=== PATIENT | male | born 1965 | race Caucasian/White ===

== ENCOUNTER 2017-05-28 09:38 | Inpatient (IN) | payer BC ==
[2017-05-27 10:30] VITALS: Ht 182.9 cm; Wt 81.3 kg
[~2017-05-28] VITALS: Ht 182.9 cm; Wt 81.3 kg
[2017-05-28] VITALS (22 sets, daily range): BP systolic 121–144; BP diastolic 69–95; PULSE 55–71; RESP 11–29
[~2017-05-28 09:38] MED LIST: CEFAZOLIN 1 GM INJ ONE
[2017-05-28] MEDS ORDERED: ROPIVACAINE 0.5 % 30 ML VIAL ONE (10:15)
[2017-05-28] MEDS ORDERED: MIDAZOLAM 1 MG/ML 2 ML INJ ONE (10:15)
[2017-05-28] MEDS ORDERED: BUPIVACAINE 0.5%/EPI (SDV) 30 ML INJ ONE (10:59)
[2017-05-28] MEDS ORDERED: POLYMYXIN/BACITRACIN 1L IRRIG ONE (11:00)
[2017-05-28] MEDS ORDERED: THROMBIN 5000 UNIT VIAL ONE (11:00)
[2017-05-28] MEDS ORDERED: CA CHLORIDE 10% 10 ML SYRINGE ONE (11:00)
--- NOTE | 2017-05-28 11:10 | HPN ---
Date/Time of Note Date/Time of Note DATE: 05/28/17 TIME: 11:10 Interval H&P Admission Note Pt. seen H&P reviewed: No system changes RAMY CHAVARRIA MD May 28, 2017 11:10
[2017-05-28] MEDS ORDERED: DEXAMETHASONE 1 MG TAB PO SCH (11:30)
[2017-05-28] MEDS ORDERED: CEFAZOLIN 2 GM/50 ML (PMX) 50 ML IVPB SCH (11:30)
[2017-05-28] MEDS ORDERED: traMADol 50 MG TAB PO SCH (11:30)
[2017-05-28] MEDS ORDERED: GABAPENTIN 300 MG CAP PO SCH ×2 (11:30→21:00)
[2017-05-28] MEDS ORDERED: TRANEXAMIC ACID 1,000 MG in SOD CHLORIDE 0.9% 100 ML IVPB SCH (11:30)
[2017-05-28] MEDS ORDERED: BUPIVACAINE 0.5% (SDV) 30 ML, morphine SULFATE (PF) 8 MG, EPINEPHrine 0.3 MG, KETOROLAC... IRR SCH ×7 (11:30)
[2017-05-28] MEDS ORDERED: NEOSTIGMINE 3 MG/3 ML SYRINGE ONE (12:25)
[2017-05-28] MEDS ORDERED: GLYCOPYRROLATE 0.4 MG INJ ONE (12:25)
[2017-05-28] MEDS ORDERED: LIDOCAINE 2% (SDV) 5 ML INJ ONE (12:25)
[2017-05-28] MEDS ORDERED: CEFAZOLIN 1 GM INJ ONE (12:25)
[2017-05-28] MEDS ORDERED: PROPOFOL 20 ML ONE (12:25)
[2017-05-28] MEDS ORDERED: ROCURONIUM 50 MG INJ ONE (12:25)
[2017-05-28] MEDS ORDERED: MEPERIDINE 25 MG INJ IV PRN (13:00)
[2017-05-28] MEDS ORDERED: DIPHENHYDRAMINE 50 MG INJ IV PRN ×2 (13:00→14:30)
[2017-05-28] MEDS ORDERED: FENTAnyl 50 MCG/ML VIAL IV PRN ×2 (13:00)
[2017-05-28] MEDS ORDERED: HYDROmorphONE (0.2 MG/ML) 10ML SYG IV PRN ×2 (13:00)
--- NOTE | 2017-05-28 14:27 | OPR ---
Date/Time of Note Date/Time of Note DATE: 05/28/17 TIME: 14:21 Operative Report Procedure Date: May 28, 2017 Preoperative Diagnosis Right shoulder displaced glenoid fracture status post open reduction internal fixation Postoperative Diagnosis 1. right shoulder displaced glenoid fracture 2. Right shoulder fracture hardware Operation Performed 1. Right shoulder open reduction internal fixation of glenoid fracture 2. 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 Approximately 2 weeks ago, he noted increasing pain and possible motion. Subsequently radiographs revealed a fractured screw and displacement of the fracture. He is now taken back to surgery for revision surgery. Operative\Procedure Findings Following the administration of general endotracheal anesthesia supplemented with a scalene block, the patient was placed in the beachchair position. The left upper extremity was prepped and draped in the usual sterile fashion. The previous deltopectoral incision was then used once again, exposing the conjoined tendon and retracting it medially. The subscapularis was then incised as well as the bicipital groove. Only a small portion of the subscapularis was detached. T The fracture site was then identified and a significant amount of tilting and displacement was noted. More proximally, the 2 screws were then identified and removed. The portion of the broken screw that was extremely posterior was then left in place. The fracture was then mobilized. Through percutaneous incisions superiorly, and using fluoroscopic guidance, 2 cannulated screws were then placed across the fracture site with both direct visual as well as radiographic visualization. The screws were a 50 mm and a 45 mm AccuTrack 4.5 millimeter screw. The fracture was then noted to be reasonably aligned with a very small amount of tilt. There was a very small area of central comminution of the cartilage, which was excised. This measured approximately 5 mm x 2 mm. Radiographic confirmation of good alignment was then documented. The joint was thoroughly irrigated closed using running sutures for the subscapularis which was a solid closure. The subcutaneous clean tissues were then closed using running stitches, followed by a Prenio dressing. A watertight closure was obtained. An UltraSling was then placed. The patient was awakened and transported to recovery in stable condition tolerated procedure well estimated blood loss for the procedure was 100 cc. Postoperative radiographs will be obtained in the recovery room. RAMY CHAVARRIA MD May 28, 2017 14:27
[2017-05-28] MEDS ORDERED: morphine 4 MG/ML VIAL IV PRN (14:30)
[2017-05-28] MEDS ORDERED: KETOROLAC 15 MG INJ IV PRN (14:30)
[2017-05-28] MEDS ORDERED: morphine 2 MG INJ IV PRN (14:30)
[2017-05-28] MEDS ORDERED: MAGNESIUM HYDROXIDE 30ML CUP PO PRN (14:30)
[2017-05-28] MEDS ORDERED: ZOLPIDEM 5 MG TAB PO PRN (14:30)
[2017-05-28] MEDS ORDERED: ACETAMINOPHEN 500 MG TAB PO PRN (14:30)
[2017-05-28] MEDS ORDERED: ONDANSETRON 4 MG INJ IV PRN (14:30)
[2017-05-28] MEDS ORDERED: OXYCODONE/ACETAMINOPHEN (5/325) TAB PO PRN ×2 (14:30)
[2017-05-28] MEDS ORDERED: TRANEXAMIC ACID 1,000 MG in SOD CHLORIDE 0.9% 100 ML IV ONE (14:30)
--- NOTE | 2017-05-28 15:06 | RADRPT ---
PROCEDURE: Intraoperative imaging of the right shoulder with fluoroscopy. CLINICAL INDICATION: Right shoulder pain. Intraoperative. TECHNIQUE: 2 images of the right shoulder were obtained in the operating room with an image intens ifier. No radiologist was in attendance. 37.5 seconds of fluoroscopy time was used. COMPARISON: No prior study is available for comparison. FINDINGS: Images demonstrate surgical screws in the glenoid. IMPRESSION: 1. Intraoperative imaging of the right shoulder. RPTAT: QQ .Jacoby Ralph MD, MD Date Time Electronically viewed and signed by .Jacoby Ralph MD, MD on 05/28/2017 15:06 .R/
[2017-05-28] MEDS: CEFAZOLIN 1 GM/50 ML (PMX) 50 ML IVPB SCH ×2 (15:20→21:45)
--- NOTE | 2017-05-28 15:55 | RADRPT ---
PROCEDURE: XR Right Shoulder. CLINICAL INDICATION: Right shoulder pain. Postop. TECHNIQUE: Two views. Frontal and scapular Y-view. COMPARISON: Intraoperative imaging done earlier the same day. FINDINGS: There are 2 screws in the glenoid. Alignment is satisfactory. The humeral head is normal. There is no dislocation. The articular surfaces are otherwise intact. There is no lytic or blastic lesion. IMPRESSION: 1. Satisfactory postoperative appearance of the right shoulder. RPTAT: QQ .Jacoby Ralph MD, Date Time Electronically viewed and signed by .Jacoby Ralph MD, on 05/28/2017 15:54 .R/
[2017-05-28] MEDS: DEXAMETHASONE 2 MG TAB PO SCH (17:32)
[2017-05-28] MEDS: SENNA/DOCUSATE NA (8.6MG/50MG) TAB PO SCH (21:44)
[2017-05-29] MEDS: DEXAMETHASONE 2 MG TAB PO SCH ×2 (00:17→05:16)
--- NOTE | 2017-05-29 05:10 | PDOCDIS ---
Discharge Instructions DIAGNOSIS Discharge Diagnosis Displaced glenoid fracture with hardware failure CONDITION Patient Condition: Good HOME CARE INSTRUCTIONS: Diet Instructions: RegularSpecial Diet: REGULAR ACTIVITY: Activity Restrictions: Slowly Increase Activity Bathing Restrictions: Shower FOLLOW UP/APPOINTMENTS Follow-up Plan Two-week SCHOOL/WORK RELEASE May return to School/Work with: With Restrictions School/Work Release Comment: 5 pounds tabletop usage of both hands RAMY CHAVARRIA MD May 29, 2017 05:10
--- NOTE | 2017-05-29 05:11 | DS ---
Date/Time of Note Date/Time of Note DATE: 05/29/17 TIME: 05:10 Discharge Summary Admission/Discharge Info Admit Date/Time May 28, 2017 at 09:38 Discharge Date/Time May 29, 2017 Discharge Diagnosis Displaced glenoid fracture with hardware failure Patient Condition: Good Procedures Revision of open reduction internal fixation of glenoid fracture with removal of hardware Hx of Present Illness Status post ORIF with fracture failure and glenoid fixation loss. He had ongoing pain. Hospital Course Patient was admitted and underwent an uncomplicated procedure. Postoperative day #1 he was discharged to be followed up in the office in 2 weeks Home Meds No Active Prescriptions or Reported Meds Primary Care Provider Not On Staff Doctor RAMY CHAVARRIA MD May 29, 2017 05:11
[2017-05-29] MEDS: CEFAZOLIN 1 GM/50 ML (PMX) 50 ML IVPB SCH (05:31)
--- NOTE | 2017-05-29 05:38 | PN ---
Date/Time of Note Date/Time of Note DATE: 05/29/17 TIME: 05:37 24 hour Interval Summary Patient is awake and alert with minimal to no pain. Physical examination: His wound is clean and dry. He is neurologically intact. He has no signs of DVT Impression: Status post ORIF right glenoid Plan: He will follow up with Dr. Rothman in 2 weeks. He will then follow-up with me in 2 months. With respect to motion and usage, he will use the arm with 5 pounds tabletop usage only for the next month. Physical Exam Vital Signs Date Time Temp Pulse Resp B/P Pulse Ox O2 Delivery O2 Flow Rate FiO2 05/28/17 19:45 98.1 62 18 124/70 98 05/28/17 18:00 Room Air Intake and Output 05/28/17 05/28/17 05/29/17 15:00 23:00 07:00 Intake Total 1500 ml 1320 ml Output Total 10 ml Balance 1490 ml 1320 ml VTE Prophylaxis VTE Prophylaxis Intervention: anti-embolic stocking Lines/Catheters IV Catheter Type: Saline Lock Interiano in Place: No Assessment/Plan Chief Complaint/Hosp Course Patient was admitted and underwent an uncomplicated procedure. Postoperative day #1 he was discharged to be followed up in the office in 2 weeks Problems: Medications Medications Home Meds No Active Prescriptions or Reported Meds RAMY CHAVARRIA MD May 29, 2017 05:38
[2017-05-29 07:56] VITALS: BP 135/84; RESP 18
[2017-05-29] MEDS: SENNA/DOCUSATE NA (8.6MG/50MG) TAB PO SCH (08:01)
[2017-05-29] MEDS ORDERED: KETOROLAC 15 MG INJ IV STA (08:02)
[2017-05-29] MEDS ORDERED: ASPIRIN 81 MG TAB PO SCH (09:00)
== END 2017-05-29 09:31 | disposition home or self-care (01) | DRG 497 ==
LOC: REC 09:38 → MS1 16:18
PROVIDERS: ADMIT Orthopaedic Surgery; ATTEND Orthopaedic Surgery
PROC: 0PP Upper Bones, Removal (ICD-10-PCS; 2017-05-28)
PROC: 0PS704Z Reposition Right Glenoid Cavity with Internal Fixation Device, Open Approach (ICD-10-PCS; principal; 2017-05-28 12:00)
DX: T84.218A Breakdown (mechanical) of internal fixation device of other bones, initial encounter (principal); S42.141A Displaced fracture of glenoid cavity of scapula, right shoulder, initial encounter for closed fracture; Y83.8 Other surgical procedures as the cause of abnormal reaction of the patient, or of later complication, without mention of misadventure at the time of the procedure
CPT/HCPCS: 86999; J0690; J1885; J2250; J2710; J2795